=== PATIENT | male | born 1955 | race Caucasian/White ===

== ENCOUNTER 2024-08-20 17:50 | Inpatient (IN) | payer SELFPAY ==
[2024-08-20 18:49] LABS: #Basophils 0.04 10x3/uL (0.0-0.2); %Basophils 0.5 % (0.0-1.0); %Eosinophils 2.4 % (0.0-10.0); %Lymphocytes 22.2 % (21.0-51.0); %Monocytes 10.5 % (0.0-10.0); %Neutrophils 63.9 % (42.0-75.0); Hematocrit 44.3 % (42.0-52.0); Hemoglobin 15.9 g/dL (14.0-18.0); Mean Corpuscular HGB CONC 35.9 g/dL (32.0-36.0); Mean Corpuscular Hemoglobin 33.8 pg (27.0-31.0); Mean Corpuscular Volume 94.1 fL (78.0-98.0); Mean Platelet Volume 8.6 fL (7.4-10.4); Platelet Count 284 10x3/uL (130-400); RBC Distribution Width 11.8 % (11.5-14.5); Red Blood Cell (RBC) Count 4.71 mill/uL (4.70-6.10)
[2024-08-20 19:10] LABS: Troponin I 0.053 ng/mL (< 0.028)
[2024-08-20] MEDS ORDERED: Labetalol HCl 100 MG/20 ML VIAL ONE (19:19)
[2024-08-20 19:28] LABS: ALT (SGPT) 43 U/L (8-55); AST (SGOT) 43 U/L (5-34); Alkaline Phosphatase 49 U/L (40-110); Anion Gap 19 mmol/L (10-20); BUN (Urea Nitrogen) 24 mg/dL (8.4-25.7); Bilirubin, Total 0.7 mg/dL (0.2-1.2); Calc. Creatinine Clearance 0 mL/min (70-130); Calcium 9.1 mg/dL (7.8-10.44); Carbon Dioxide 18 mmol/L (23-31); Chloride 107 mmol/L (98-107); Estimated GFR 71; Globulin 3.1 g/dL (2.4-3.5); Glucose 106 mg/dL (80-115); Protein, Total 7.1 g/dL (5.8-8.1); Sodium 139 mmol/L (136-145)
[2024-08-20] MEDS ORDERED: Aspirin Chewable 81 MG TAB ONE (19:45)
[2024-08-20] MEDS ORDERED: Ondansetron ODT 4 MG TAB PO PRN (21:30)
[2024-08-20] MEDS ORDERED: Senokot S 8.6-50 MG TAB PO PRN (21:30)
[2024-08-20 22:05] LABS: Troponin I 0.055 ng/mL (< 0.028)
[2024-08-20 22:58] VITALS: BMI 31.6
[2024-08-20] MEDS: hydrALAZINE 20 MG/ML VIAL SLOW IVP PRN (23:18)
[2024-08-20] MEDS: traMADol HCl 50 MG TAB PO PRN (23:19)
[2024-08-21 01:44] LABS: Troponin I 0.055 ng/mL (< 0.028)
[2024-08-21 05:41] LABS: #Basophils 0.04 10x3/uL (0.0-0.2); %Basophils 0.5 % (0.0-1.0); %Eosinophils 2.7 % (0.0-10.0); %Lymphocytes 26.3 % (21.0-51.0); %Monocytes 8.6 % (0.0-10.0); %Neutrophils 61.4 % (42.0-75.0); Hematocrit 42.1 % (42.0-52.0); Mean Corpuscular HGB CONC 35.6 g/dL (32.0-36.0); Mean Corpuscular Hemoglobin 33.7 pg (27.0-31.0); Mean Corpuscular Volume 94.6 fL (78.0-98.0); Mean Platelet Volume 8.8 fL (7.4-10.4); Platelet Count 276 10x3/uL (130-400); Red Blood Cell (RBC) Count 4.45 mill/uL (4.70-6.10)
[2024-08-21 05:51] LABS: Hemoglobin A1c 5.2 % (4.0-6.0)
[2024-08-21 06:06] LABS: Anion Gap 15 mmol/L (10-20); BUN (Urea Nitrogen) 20 mg/dL (8.4-25.7); Calc. Creatinine Clearance 113 mL/min (70-130); Calcium 8.6 mg/dL (7.8-10.44); Carbon Dioxide 22 mmol/L (23-31); Chloride 106 mmol/L (98-107); Cholesterol 226 mg/dl (< 200 Desired); Estimated GFR 96; Glucose 106 mg/dL (80-115); HDL Cholesterol 45 mg/dL (>60 Neg Risk); LDL Cholesterol, Calculated 136 mg/dL; Potassium 3.6 mmol/L (3.5-5.1); Sodium 139 mmol/L (136-145); Triglycerides 223 mg/dL (Less than 150)
[2024-08-21] MEDS: Thiamine 100 MG TAB PO SCH (08:05)
[2024-08-21] MEDS: Enoxaparin 40 MG (0.4 mL) SYRINGE SC SCH (08:06)
[2024-08-21] MEDS: Cyclobenzaprine 10 MG TAB PO PRN (08:06)
[2024-08-21] MEDS ORDERED: predniSONE 20 MG TAB PO SCH (09:32)
[2024-08-21] MEDS ORDERED: HYDROcodone/Acetaminophen 5/325 mg Tablet PO PRN (09:34)
[2024-08-21] MEDS: Amlodipine 5 MG TAB PO SCH (10:33)
[2024-08-21] MEDS: Lisinopril 20 MG TAB PO SCH (10:33)
[2024-08-21] MEDS: HYDROcodone/Acetaminophen 5/325 mg Tablet PO SCH (10:33)
[2024-08-21] MEDS: tiZANidine HCl 4 MG TAB PO SCH ×2 (10:45→21:53)
[2024-08-21] MEDS: predniSONE 20 MG TAB PO SCH (11:39)
[2024-08-21] MEDS: Famotidine 20 MG TAB PO SCH (11:39)
[2024-08-21] MEDS: Lidocaine 4% Patch TD SCH (11:39)
[2024-08-21] MEDS: Acetaminophen 325 MG TAB PO PRN (11:41)
[2024-08-21] MEDS: Ketorolac Tromethamine 30 MG (1 mL) VIAL IVP PRN (16:47)
[2024-08-21] MEDS: hydrALAZINE 25 MG TAB PO SCH ×2 (16:48→21:48)
[2024-08-21] MEDS ORDERED: Lisinopril 10 MG TAB PO SCH (21:00)
[2024-08-21] MEDS: traMADol HCl 50 MG TAB PO PRN (21:53)
[2024-08-21] MEDS: Transdermal Patch Removal TOP SCH (21:56)
[2024-08-22] MEDS: predniSONE 20 MG TAB PO SCH (08:09)
[2024-08-22] MEDS: Famotidine 20 MG TAB PO SCH (08:11)
[2024-08-22] MEDS: Lidocaine 4% Patch TD SCH (08:12)
[2024-08-22 11:10] VITALS: BP 94/58; TEMP 97.6
== END 2024-08-22 13:47 | disposition home or self-care (01) | DRG 537 ==
LOC: ERS 17:50 → 2SE 20:32 → OBSVTOIN 08-21 15:19
PROVIDERS: ADMIT Student in an Organized Health Care Education/Training Program; ATTEND Family Medicine
DX: S76.012A Strain of muscle, fascia and tendon of left hip, initial encounter (principal); I24.89 Other forms of acute ischemic heart disease; I16.0 Hypertensive urgency; I10 Essential (primary) hypertension; E11.9 Type 2 diabetes mellitus without complications; F41.9 Anxiety disorder, unspecified; Z88.0 Allergy status to penicillin; F10.10 Alcohol abuse, uncomplicated; X58.XXXA Exposure to other specified factors, initial encounter
CPT/HCPCS: 36415; 80048; 80053; 80061; 83036; 84443; 84484; 85025; 93005; J0360; J1650; J1885; J7512